=== PATIENT | female | born 1950 | race Hispanic/Latino ===

== ENCOUNTER 2024-12-17 11:04 | Emergency (ER) | payer MEDICARE ==
[~2024-12-17] VITALS: Ht 154.9 cm; Wt 59.0 kg
[2024-12-17 11:23] VITALS: PULSE 80; RESP 19; TEMP 98.2
[2024-12-17] MEDS: KETOROLAC TROMETHAMINE 30 MG/ML VIAL IM STA (11:34)
[2024-12-17] MEDS ORDERED: MELOXICAM7.5 MG PO (12:44)
[2024-12-17] MEDS ORDERED: METHOCARBAMOL750 MG PO (12:44)
[2024-12-17 13:14] VITALS: BP 141/86; O2SAT 98
== END 2024-12-17 12:50 | disposition home or self-care (01) ==
LOC: FSED 11:09
DX: S29.011A Strain of muscle and tendon of front wall of thorax, initial encounter (principal); X50.1XXA Overexertion from prolonged static or awkward postures, initial encounter; Y92.89 Other specified places as the place of occurrence of the external cause
CPT/HCPCS: 71046; 99283; J1885